=== PATIENT | female | born 1975 | race Hispanic/Latino ===

== ENCOUNTER 2016-11-07 07:21 | Emergency (ER) | payer MEDICARE ==
[2016-11-07 07:45] VITALS: BP 131/82
[2016-11-07] MEDS ORDERED: PHENERGAN PO ONE (08:21)
[2016-11-07] MEDS ORDERED: TORADOL IM ONE (08:21)
--- NOTE | 2016-11-07 08:50 | Cat Scan Report ---
CT HEAD WITHOUT CONTRAST: HISTORY: Headache. Serial contiguous axial images were obtained through the cranium. Intravenous contrast material was not administered. The ventricles are normal in size and appearance. There is no mass effect or midline shift. No areas of abnormally increased or decreased attenuation are seen. No mass lesion is seen. The mastoid air cells and visualized portions of the sinuses are normal. IMPRESSION: Cranial CT scan within normal limits.
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
== END 2016-11-07 09:54 | disposition home or self-care (01) ==
LOC: ED 07:21
DX: R51 Headache (principal); K21.9 Gastro-esophageal reflux disease without esophagitis; F31.9 Bipolar disorder, unspecified; F17.200 Nicotine dependence, unspecified, uncomplicated; F19.10 Other psychoactive substance abuse, uncomplicated; Z86.19 Personal history of other infectious and parasitic diseases; Z88.2 Allergy status to sulfonamides; Z88.8 Allergy status to other drugs, medicaments and biological substances; Z88.1 Allergy status to other antibiotic agents
CPT/HCPCS: 70450; 96372; 99283; J1885; Q0169

== ENCOUNTER 2016-11-08 14:09 | Outpatient (CLI) | payer MEDICARE ==
[2016-11-08 15:06] LABS: Alanine Aminotransferase 31 units/L (7-56); Albumin 4.2 g/dL (3.9-5); Albumin/Globulin Ratio 1.3 %; Alkaline Phosphatase 78 units/L (35-129); Anion Gap 18 mmol/L; BUN/Creatinine Ratio 17.14; Bilirubin,Total < 0.20 mg/dL (0.1-1.2); Blood Urea Nitrogen 12 mg/dL (7-17); Calcium 9.2 mg/dL (8.4-10.2); Carbon Dioxide 23 mmol/L (22-30); Chloride 100.7 mmol/L (98-107); Glucose 85 mg/dL (65-100); Potassium 4.1 mmol/L (3.6-5.0); Sodium 138 mmol/L (137-145); Total Protein 7.5 g/dL (6.3-8.2)
[2016-11-12 15:59] LABS: Vitamin D, 25-OH, Total 23 ng/mL (30-100)
== END 2016-11-08 14:10 | disposition home or self-care (01) ==
LOC: LAB 14:09
PROVIDERS: ATTEND Clinical Nurse Specialist Psychiatric/Mental Health
DX: F31.4 Bipolar disorder, current episode depressed, severe, without psychotic features (principal); F17.200 Nicotine dependence, unspecified, uncomplicated
CPT/HCPCS: 36415; 80053; 80178; 82306; 84443